=== PATIENT | male | born 1970 | race Caucasian/White ===

== ENCOUNTER 2020-11-21 03:40 | Emergency (ER) | payer MEDICARE ==
[2020-11-21 04:59] LABS: RED BLOOD COUNT 4.12 M/UL (4.20-5.50)
[2020-11-21 05:22] LABS: BUN/CREATININE RATIO 9 (0-10)
[2020-11-21] MEDS ORDERED: TORADOL 10 MG T10 MG PO (09:17)
[2020-11-21] MEDS ORDERED: FLOMAX 0.4 MG0.4 MG PO (09:17)
[2020-11-21] MEDS ORDERED: ZOFRAN4 MG PO (09:17)
== END 2020-11-21 09:34 | disposition home or self-care (01) ==
LOC: ER1 03:40
PROVIDERS: Physician Assistant
DX: N13.2 Hydronephrosis with renal and ureteral calculous obstruction (principal); F17.210 Nicotine dependence, cigarettes, uncomplicated
CPT/HCPCS: 80053; 81001; 83690; 85025; 87086; 96374; 99284; J1885